=== PATIENT | female | born 1930 | race Caucasian/White ===

== ENCOUNTER → 2017-08-04 | Outpatient (CLI) | payer MEDICARE, BC ==
[2017-08-04 13:01] LABS: HCT 43.6 % (34.0-46.0); HGB 13.5 gm/dL (11.4-16.0); MCH 31.2 pg (25.0-35.0); MCV 100.6 fL (80.0-100.0); Mean Platelet Volume 6.7; Platelet Count 193 k/uL (150-450); RBC 4.33 m/uL (3.80-5.40); RDW 13.3 % (11.5-15.5)
[2017-08-04 13:09] LABS: ALT 32 U/L (9-52); AST 19 U/L (14-36); Albumin 3.6 g/dL (3.5-5.0); Alkaline Phosphatase 67 U/L (38-126); Anion Gap 8 mmol/L; Blood Urea Nitrogen 29 mg/dL (7-17); Calcium 9.1 mg/dL (8.4-10.2); Carbon Dioxide 27 mmol/L (22-30); Chloride 105 mmol/L (98-107); Cholesterol 268 mg/dL (<200); Glucose 94 mg/dL (74-99); HDL Cholesterol 55 mg/dL (40-60); LDL Cholesterol,Calculated 174 mg/dL (0-99); Potassium 4.7 mmol/L (3.5-5.1); Sodium 140 mmol/L (137-145); Total Bilirubin 0.6 mg/dL (0.2-1.3); Total Protein 6.4 g/dL (6.3-8.2); Triglycerides 194 mg/dL (<150)
== END | disposition home or self-care (01) ==
LOC: LABWHC1 12:25
PROVIDERS: ATTEND Internal Medicine
DX: I10 Essential (primary) hypertension (principal)
CPT/HCPCS: 36415; 80053; 80061; 84443; 85027

== ENCOUNTER → 2017-11-21 | Outpatient (CLI) | payer MEDICARE, BC ==
[2017-11-21 10:59] LABS: HCT 40.1 % (34.0-46.0); HGB 12.8 gm/dL (11.4-16.0); MCH 31.3 pg (25.0-35.0); MCV 97.7 fL (80.0-100.0); Mean Platelet Volume 6.4; Platelet Count 203 k/uL (150-450); RBC 4.11 m/uL (3.80-5.40); RDW 12.5 % (11.5-15.5); WBC 4.6 k/uL (3.8-10.6)
[2017-11-21 11:13] LABS: Albumin 3.7 g/dL (3.5-5.0); Calcium 9.2 mg/dL (8.4-10.2); Potassium 4.3 mmol/L (3.5-5.1); Total Bilirubin 0.4 mg/dL (0.2-1.3); Total Protein 6.2 g/dL (6.3-8.2)
== END | disposition home or self-care (01) ==
LOC: LABWHC1 10:28
PROVIDERS: ATTEND Internal Medicine
DX: I10 Essential (primary) hypertension (principal)
CPT/HCPCS: 36415; 80053; 80061; 84443; 85027

== ENCOUNTER 2018-05-26 17:21 | Emergency (ER) | payer MEDICARE, BC ==
[2018-05-26 17:26] VITALS: BP 140/85; PULSE 82; RESP 18; TEMP 98.4
[2018-05-26] MEDS ORDERED: PROPARACAINE 0.5% OPHTH DROPS 15 ML BTL BOTH EYES STA (17:45)
--- NOTE | 2018-05-26 18:11 | ED ---
General Adult HPI - General Source: patient, RN notes reviewed Mode of arrival: wheelchair Limitations: no limitations <Miguel Marcial - Last Filed: 05/26/18 18:14> <Pranay Rene - Last Filed: 05/26/18 18:39> - General Chief complaint: Eye Problems Stated complaint: EYE PROBLEM Time Seen by Provider: 05/26/18 17:38 - History of Present Illness Initial comments: Patient 88-year-old female presented to the emergency room today with a chief complaint of bilateral eye burning over the last 7 days. Patient denies any specific injury or trauma. Patient states that she was about possible some facial cream enteritis. She is unsure. She does not that it's been irritating and feels a foreign body sensation in both eyes. States seems to be worse in the left and right at this time. She states does seem to go back and forth. Patient denies any other complaints or symptoms currently. Patient denies any recent fever, chills, shortness of breath, chest pain, back pain, abdominal pain , nausea or vomiting, numbness or tingling, headaches or visual changes, or any other complaints. (Miguel Marcial) - Related Data Home Medications Medication Instructions Recorded Confirmed Aspirin 81 mg PO DAILY 05/30/14 05/26/18 Pantoprazole Sodium [Protonix] 40 mg PO DAILY 05/30/14 05/26/18 ALPRAZolam [Xanax] 0.25 mg PO BID PRN 05/26/18 05/26/18 Acetaminophen Tab [Tylenol Tab] 1,000 mg PO QID PRN 05/26/18 05/26/18 Atorvastatin [Lipitor] 40 mg PO HS 05/26/18 05/26/18 Cyanocobalamin (Vitamin B-12) 1,000 mcg PO DAILY 05/26/18 05/26/18 [Vitamin B-12] DULoxetine HCL [Cymbalta] 30 mg PO DAILY 05/26/18 05/26/18 Hydrochlorothiazide 12.5 mg PO DAILY 05/26/18 05/26/18 Levothyroxine Sodium [Synthroid] 88 mcg PO DAILY 05/26/18 05/26/18 Lisinopril [Zestril] 5 mg PO DAILY 05/26/18 05/26/18 Naproxen Sodium [Aleve] 220 mg PO Q12H PRN 05/26/18 05/26/18 Oxybutynin Chloride [Oxybutynin 15 mg PO DAILY 05/26/18 05/26/18 Chloride ER] diphenhydrAMINE HCL [Benadryl] 25 - 50 mg PO Q6H PRN 05/26/18 05/26/18 Previous Rx's Medication Instructions Recorded Ketorolac 0.5% Ophth Soln [Acular 1 drops BOTH EYES QID 5 Days ml 05/26/18 0.5%] Tobramycin 0.3% Ophth Soln [Tobrex 1 - 2 drop BOTH EYES QID 7 Days ml 05/26/18 0.3% Ophth Soln] Allergies Allergy/AdvReac Type Severity Reaction Status Date / Time adhesive tape Allergy Rash/Hives Verified 05/26/18 18:33 iodine Allergy Unknown Verified 05/26/18 18:33 shellfish derived [Shellfish] Allergy Rash/Hives Verified 05/26/18 18:33 Review of Systems ROS Other: All systems not noted in ROS Statement are negative. <Miguel Marcial - Last Filed: 05/26/18 18:14> ROS Other: All systems not noted in ROS Statement are negative. <Pranay Rene - Last Filed: 05/26/18 18:39> ROS Statement: Those systems with pertinent positive or pertinent negative responses have been documented in the HPI. 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 History of Any Multi-Drug Resistant Organisms: None Reported Past Surgical History: Adenoidectomy, Hysterectomy, Joint Replacement, Pacemaker , Tonsillectomy Additional Past Surgical History / Comment(s): right hip replacement, lumpectomy right breast, removed 13 lymphs Past Psychological History: No Psychological Hx Reported Smoking Status: Never smoker Past Alcohol Use History: None Reported Past Drug Use History: None Reported <Miguel Marcial - Last Filed: 05/26/18 18:14> General Exam Limitations: no limitations <Miguel Marcial - Last Filed: 05/26/18 18:14> <Pranay Rene - Last Filed: 05/26/18 18:39> - General Exam Comments Initial Comments: General: The patient is awake and alert, in no distress, and does not appear acutely ill. Eye: Pupils are equal, round and reactive to light. Extra-ocular movements are intact. No nystagmus. Mild redness to the conjunctiva bilaterally. Ears, nose, mouth and throat: There are moist mucous membranes and no oral lesions. Neck: The neck is supple, there is no tenderness or JVD. Musculoskeletal: Normal ROM, no tenderness. Sensation intact. Strength 5/5. Pulses equal bilaterally 2+. Neurological: A&O x 3. CN II-XII intact, There are no obvious motor or sensory deficits. Coordination appears grossly intact. Speech is normal. Skin: Skin is warm and dry and no rashes or lesions are noted. Psychiatric: Cooperative, appropriate mood & affect, normal judgment. (Miguel Marcial) Course <Miguel Marcial - Last Filed: 05/26/18 18:14> <Pranay Rene - Last Filed: 05/26/18 18:39> Vital Signs 05/26/18 17:23 Temperature 98.4 F Pulse Rate 82 Respiratory 18 Rate Blood Pressure 140/85 O2 Sat by Pulse 98 Oximetry - Reevaluation(s) Reevaluation #1: 05/26/18 18:39 PA supervision: I proceeded [id number] evaluation the patient did discuss [employer] her and her family. Examination the eyes reveal mild evidence of conjunctivitis bilaterally. Patient does have a habit apparently rubbing her eyes per family members. I do agree with the assessment and plan. I did examine the eyes using an ophthalmascope scope. (Pranay Rene) Medical Decision Making <Miguel Marcial - Last Filed: 05/26/18 18:14> <Pranay Rene - Last Filed: 05/26/18 18:39> - Medical Decision Making (Right eye were anesthetized locally with proparacaine which didn't relieve her symptoms. The eyes were stained with fluorescein and checked with Wood's lamp revealing no foreign bodies or corneal abrasion. The eyes for sugars were checked bilaterally showing 9 on the left with 10 on the right. Case is discussed and seen by physician Dr. Rene. Patient will be treated for conjunctivae started on antibiotic drops along with anti-inflammatory drop or leg. Advised follow-up with tongue and groove machine setter please return if symptoms increase worsen. (Miguel Marcial) Disposition Is patient prescribed a controlled substance at d/c from ED?: No Time of Disposition: 18:20 <Miguel Marcial - Last Filed: 05/26/18 18:14> <Pranay Rene - Last Filed: 05/26/18 18:39> Clinical Impression: Acute conjunctivitis Disposition: HOME SELF-CARE Condition: Good Instructions: Conjunctivitis (ED) Additional Instructions: Please follow-up with the tongue and groove machine setter over the next 1-2 days. Please use drops as prescribed return to emergency room symptoms increase worsen. Prescriptions: Ketorolac 0.5% Ophth Soln [Acular 0.5%] 1 drops BOTH EYES QID 5 Days ml Tobramycin 0.3% Ophth Soln [Tobrex 0.3% Ophth Soln] 1 - 2 drop BOTH EYES QID 7 Days ml Referrals: Nonstaff,Physician [REFERRING] - 1-2 days Sandra Villa MD [STAFF PHYSICIAN] - 1-2 days
== END 2018-05-26 18:48 | disposition home or self-care (01) ==
LOC: EC 17:21
DX: H10.33 Unspecified acute conjunctivitis, bilateral (principal); K21.9 Gastro-esophageal reflux disease without esophagitis; E07.9 Disorder of thyroid, unspecified; Z96.641 Presence of right artificial hip joint; Z95.0 Presence of cardiac pacemaker; Z79.82 Long term (current) use of aspirin; Z79.899 Other long term (current) drug therapy; Z91.048 Other nonmedicinal substance allergy status; Z91.013 Allergy to seafood
CPT/HCPCS: 99283